=== PATIENT | female | born 1965 | race Caucasian/White ===

== ENCOUNTER 2016-11-23 13:42 | Emergency (ER) | payer OTHER ==
[~2016-11-23] VITALS: Ht 160 cm; Wt 68.0 kg
[2016-11-23 14:05] VITALS: Ht 160 cm; Wt 68.0 kg
[2016-11-23] MEDS ORDERED: KETOROLAC 30 MG INJ IM STA (16:45)
[2016-11-23] MEDS ORDERED: ORPH100T PO (18:16)
[2016-11-23] MEDS ORDERED: HYDR-906 PO (18:16)
--- NOTE | 2016-11-23 18:35 | ERD ---
ER Documentation Chief Complaint Date/Time DATE: 11/23/16 TIME: 18:29 Chief Complaint intermittent lower back pain 6/10 HPI Patient is a 51-year-old female who presents to the ED with lower left back pain on and off for 1 year. 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 She complains of spasming and tension in her lower left back. Denies bowel or bladder incontinence. Denies radiation of pain down her legs. Denies numbness or tingling. She states that she was bending forward and developed a pain in her back. Denies trauma. She has had this in the past and she usually takes ibuprofen and uses heat packs. She states that she has done not as well which has helped with her pain. ROS All systems reviewed and are negative except as per history of present illness. Medications Home Meds Active Scripts Hydrocodone/Acetaminophen (Canaan 5-325 Tablet) 1 Each Tablet, 1 TAB PO Q6H Y for PAIN, #7 TAB Prov:DIRK LIN PA-C 11/23/16 Orphenadrine Citrate (Norflex) 100 Mg Tablet.sa, 100 MG PO BID for 14 Days, TAB.SA Prov:DIRK LIN PA-C 11/23/16 Allergies Allergies: Coded Allergies: No Known Allergy (Unverified , 11/23/16) PMhx/Soc History of Surgery: Yes () Anesthesia Reaction: No Hx Neurological Disorder: No Hx Respiratory Disorders: No Hx Cardiac Disorders: No Hx Psychiatric Problems: No Hx Miscellaneous Medical Probl: No Hx Alcohol Use: No Hx Substance Use: No Hx Tobacco Use: No Smoking Status: Never smoker FmHx Family History: No coronary disease, No diabetes, No other Physical Exam Vitals Vital Signs Date Time Temp Pulse Resp B/P Pulse Ox O2 Delivery O2 Flow Rate FiO2 11/23/16 14:05 98.3 109 18 123/80 98 Physical Exam GENERAL: Well-developed, well-nourished female. Appears in no acute distress. LUNG: Clear to auscultation bilaterally. No rhonchi, wheezing, rales or coarse breath sounds. HEART: Regular rate and rhythm. No murmurs, rubs or gallops. BACK: tenderness to paraspinal on the left lower back. spasm. no step offs or deformities. no open wounds or laceration. Extremities: Equal pulses bilaterally. No peripheral clubbing, cyanosis or edema. No unilateral leg swelling. NEUROLOGIC: Alert and oriented. Moving all four extremities. 5/5 strength in all extremities. Normal speech. Steady gait. SKIN: Normal color. Warm and dry. No rashes or lesions. Capillary refill < 2 seconds Results 24 hrs Current Medications Medications (Trade) Dose Ordered Sig/Saroj Route PRN Reason Start Time Stop Time Status Last Admin Dose Admin Ketorolac Tromethamine (Toradol) 30 mg ONCE STAT IM 11/23/16 16:45 11/23/16 16:46 DC 11/23/16 16:54 Procedures/MDM ER COURSE: I kept the patient and/or family informed of laboratory and diagnostic imaging results throughout the emergency room course. Medication Patient was given Toradol 30 in the ED. Tolerated medication well with no adverse reaction seen improvement symptoms MEDICAL DECISION MAKING: This is a 51-year-old who presents with low back pain. Vital signs were reviewed. Patient is afebrile. Patient is not hypoxic. Patient is not toxic or ill-appearing. Temperature 98.3 O2 sat 98. Her pulse 109 is likely related to her pain. Patient has back pain of uncertain etiology, likely muscle strain. Low suspicion for cauda equine syndrome, spinal epidural hematoma, spinal epidural abscess, osteomyelitis, fracture, aortic dissection, AAA, pyelonephritis, nephrolithiasis, septic stone, obstructed stone, saddle anesthesia. Patient did not want an x-ray of her back. DISCHARGE: At this time, patient is stable for discharge and outpatient management with no new complaints during the ER course. Patient was sent home with Deep and Mani. Patient to follow-up with primary care for further evaluation. A note for work was given to patient. Patient will be discharged home with instructions to recheck for new or worsening symptoms such as fever, nausea, weakness, LOC and to follow up with primary care in the next 1-2 days. Patient was advised to return to the ER for any new or worsening symptoms. Plan was discussed and patient and/or family understands and agrees. Home instructions were given. Departure Diagnosis: Primary Impression: Back pain Back pain location: back pain in unspecified location Chronicity: unspecified Back pain laterality: left Qualified Code: M54.9 - Left-sided back pain, unspecified back location, unspecified chronicity Condition: Stable Patient Instructions: Back Pain (Acute Or Chronic) Referrals: [facility] YOU HAVE RECEIVED A MEDICAL SCREENING EXAM AND THE RESULTS INDICATE THAT YOU DO NOT HAVE A CONDITION THAT REQUIRES URGENT TREATMENT IN THE EMERGENCY DEPARTMENT. FURTHER EVALUATION AND TREATMENT OF YOUR CONDITION CAN WAIT UNTIL YOU ARE SEEN IN YOUR DOCTORS OFFICE WITHIN THE NEXT 1-2 DAYS. IT IS YOUR RESPONSIBILITY TO MAKE AN APPOINTMENT FOR FOLOW-UP CARE. IF YOU HAVE A PRIMARY DOCTOR --you should call your primary doctor and schedule an appointment IF YOU DO NOT HAVE A PRIMARY DOCTOR YOU CAN CALL OUR PHYSICIAN REFERRAL HOTLINE AT IF YOU CAN NOT AFFORD TO SEE A PHYSICIAN YOU CAN CHOSE FROM THE FOLLOWING [facility] [address] [facility] [address] [facility] [address] [facility] [address] [facility] [address] [facility] [facility]. [address] [place] [place] [facility]RG[facility]/SPECIALTIES Additional Instructions: Llame al doctor MAANA y nico lidia JARED PARA DENTRO DE 1-2 SOUZA.Dgale a la secretaria que nosotros le instruimos hacer esta jared.Avise o llame si archibald condicin se empeora antes de la jared. Regresa aqui si peor o no mejor. DIRK LIN PA-C Nov 23, 2016 18:34
[2016-11-23 19:10] VITALS: BP 127/75; PULSE 90; RESP 19; TEMP 98.1
== END 2016-11-23 19:10 | disposition home or self-care (01) ==
LOC: FTE 13:42
DX: M54.5 Low back pain (principal)
CPT/HCPCS: 96372; J1885; Z7502